=== PATIENT | female | born 1995 | race Asian ===

== ENCOUNTER 2024-04-07 10:08 | Outpatient (CLI) | payer MEDICAID, SELFPAY | END 2024-04-07 10:09 | disposition home or self-care (01) | LOC: NFLDREF 04-11 04:30 | PROVIDERS: Visit Provider Obstetrics & Gynecology | DX: Z34.92 Encounter for supervision of normal pregnancy, unspecified, second trimester (principal); Z3A.27 27 weeks gestation of pregnancy | CPT/HCPCS: 86592 ==

== ENCOUNTER 2024-06-13 13:04 | Outpatient (CLI) | payer MEDICAID, SELFPAY ==
[2024-06-14 12:54] LABS: Strep B DNA Probe POSITIVE (Negative)
[2024-06-14 13:04] LABS: Strep B Susceptibility Needed? No
== END 2024-06-13 13:05 | disposition home or self-care (01) ==
LOC: NFLDREF 13:20
PROVIDERS: Visit Provider Obstetrics & Gynecology
DX: Z34.93 Encounter for supervision of normal pregnancy, unspecified, third trimester (principal); Z3A.37 37 weeks gestation of pregnancy
CPT/HCPCS: 87081; 87653

== ENCOUNTER 2024-06-17 09:41 | Inpatient (IN) | payer MEDICAID, SELFPAY ==
[2024-06-17] VITALS (30 sets, daily range): BP systolic 103–168; BP diastolic 53–113; PULSE 76–146; RESP 16; TEMP 36.8–37; O2SAT 92–100; BMI 26.0
[2024-06-17] MEDS: AMPICILLIN 2 GM in 0.9 % SODIUM CHLORIDE Mini-bag 100 ML IVPB (09:35)
[2024-06-17 10:04] LABS: Basophils Percent Auto 0.1 % (0.0-3.0); Eosinophils Percent Auto 0.1 % (0.0-7.0); Hematocrit 39.3 % (33.0-51.0); Hemoglobin* 13.3 gm/dL (12.0-16.0); Immature Granulocytes Pct Auto 0.3 %; Lymphocytes Percent Auto 10.9 % (20-44); Mean Corpuscular HGB Conc 34 gm/dL (32-36); Mean Corpuscular Hemoglobin 30 pg (26-34); Mean Corpuscular Volume 88 fL (80-100); Monocytes Percent Auto 6.8 % (0.0-11.0); Neutrophils Percent Auto 81.8 % (42.0-72.0); Platelet Count* 327 K/uL (140-440); RDW Coefficient of Variation % 11.9 % (11.5-15.5); Red Blood Count 4.49 m/uL (4.00-5.20)
[2024-06-17 10:07] LABS: Slide Review Reflex No
[2024-06-17] MEDS: LIDOCAINE 2% (PF) 5 ML VIAL EPIDURAL (10:12)
[2024-06-17] MEDS: ROPIVACAINE 0.2% 100 ml 100 ML 12 MG EPIDURAL (10:12)
[2024-06-17] MEDS: LACTATED RINGERS 1000 ML 1,000 ML 990 ML IV (10:14)
--- NOTE | 2024-06-17 10:42 | PM.ANBPRC ---
[facility] Medical History (Updated 04/07/24 @ 10:58 by Mery Obrien MD) Mild cervical dysplasia ?N87.0 - Mild cervical dysplasia (ICD-10) Chlamydia infection ?A74.9 - Chlamydial infection, unspecified (ICD-10) Surgical History (Updated 03/21/24 @ 12:49 by Maribel Johns MD) History of surgical removal of ganglion cyst ?Z98.890 - Other specified postprocedural states (ICD-10) Family History (Updated 03/21/24 @ 12:52 by Maribel Johns MD) Maternal Grandfather Lung cancer Maternal Grandmother Uterine cancer Paternal Grandfather Lung cancer Social History (Updated 03/21/24 @ 10:37 by Katelyn Payne MA) What is your current living situation?: I presently have a place to live Problems where you live: no known problems In the past 12 months, utilities in danger of being shut off: no In past 12 months, lack of transportation kept you from medical appts, meetings, work, or getting things needed for daily living: no In the past 12 mos, have been you worried that your food would run out before you had money to buy more?: never true In the past 12 mos, the food you bought just didn't last and you didn't have money to buy more?: never true How often does anyone, including family, friends and others, physically hurt you: never How often does anyone, including family, friends and others, insult or talk down to you: rarely How often does anyone, including family, friends and others, threaten you with harm: never How often does anyone, including family, friends and others, scream or curse at you: never Health Related Social Needs: Other personal risk factors, not elsewhere classified (Z91.89) Meds Home Medications and Allergies Home Medications ?Medication ?Instructions ?Recorded ?Confirmed ?Type vits no.126-ferrous fum 1 tab PO QDAY 03/21/24 06/17/24 History 28 mg iron-folic acid 800 mcg tablet (Classic ) Allergies Allergy/AdvReac Type Severity Reaction Status Date / Time No Known Drug Allergies Allergy Verified 06/13/24 12:55 Results Labs Labs: Laboratory Results - last 24 hr 06/17/24 09:58 WBC 19.60 H RBC 4.49 Hgb 13.3 Hct 39.3 MCV 88 MCH 30 MCHC 34 RDW Coeff of Camilo 11.9 Plt Count 327 Neut % (Auto) 81.8 H Lymph % (Auto) 10.9 L King % (Auto) 6.8 Eos % (Auto) 0.1 Baso % (Auto) 0.1 Neut # (Auto) 16.00 H Lymph # (Auto) 2.10 King # (Auto) 1.30 H Eos # (Auto) 0.00 Baso # (Auto) 0.00 Abs Immat Gran (auto) 0.10 Imm/Tot Granulo (auto) 0.3 Vital Signs Vital Signs: Last Vital Signs Pulse 93 06/17/24 10:38 BP 115/63 06/17/24 10:38 Pulse Ox 99 06/17/24 10:33 Anesthesia Procedures Epidural Insertion Patient Location: OB Start Time: 10:10 Stop Time: 11:10 Start Date: 06/17/24 Stop Date: 06/17/24 Reason for Block: procedure for pain Patient Position: sitting Performed By: Milagros Yo Preanesthetic Checklist: IV checked, risks and benefits discussed, monitors and equipment checked, pre-op evaluation, timeout performed and anesthesia consent Prep: chlorhexidine gluconate Monitoring: blood pressure monitoring, continuous pulse oximetry and heart rate Approach: midline Vertebral Space: lumbar (1-5) Epidural Technique: MARYSOL saline Needle Type: Tuohy needle Injection Technique: continuous catheter Needle gauge: 17 Needle Length (cm): 10 cm Needle Insertion Depth (cm): 5 Catheter Gauge: 19 Catheter Type: multi-orifice Catheter at skin depth (cm): 15 Test Dose Result: negative and lidocaine 1.5% with epinephrine 1 to 200,000
[2024-06-17] MEDS: OXYTOCIN 30 unit/500 ML in NS 30 UNIT/500 ML BAG 300 UNIT IVPB (11:33)
[2024-06-17] MEDS: OXYTOCIN 10 UNIT/ML INJ IM (11:37)
--- NOTE | 2024-06-17 21:28 | W.PM.LDBA ---
Subjective History of Present Illness Time Seen by Provider: 12:00 Date Seen: 06/17/24 Narrative: Patient is being admitted to Labor and Delivery for spontaneous labor. She is a 28 year old at 37.6 weeks gestation. The presented in spontaneous labor at 6 cm, breathing through contractions and membrane still intact. Specific Issues/Plans G1 Partner: [] Girl: Bhavna Repeat GBS at visit after 06/06/2024 - problem with specimen CHRISTINA at 25 2/7 weeks from [place] # IUGR, diagnosed at 25 6/7 weeks (03/25/24) by MFM, EFW 4% (see summary of 03/25 US below) US every 3 weeks for growth Weekly UA dopplers / NST and surveillance. She is seeing MFM weekly for Dopplers and every three weeks for growth ultrasounds. As of 05/30, delivery acceptable at 38 weeks. # Short cervix with funneling noted at 22 weeks/FAS on 02/29/24 Cervical length:1.5cm with funneling, MFM consult was ordered in [place], patient unable to attend due to move. Vaginal progesterone recommended 03/21/24 MFM consult also placed 03/21/24; recommended no surveillance given gestational age # Anxiety, hx. PTSD Currently managed w/o medication # History of Chlamydia-2020 Negative testing at start of #History of frequent UTIs # Constipation and bleeding with bowel movements Recommended Miralax on 05/19 CHRISTINA Labs: 11/19/2023: Blood type and group B positive, antibody screen negative, hemoglobin 13.4, platelets [id number], rubella immune, RPR nonreactive, hepatitis-B surface antigen nonreactive, HIV nonreactive, gonorrhea chlamydia testing negative, urine culture negative, hepatitis-C negative. Last Pap smear completed on January 2024: Negative AFP on 02/01/2024: Negative Imagin12/04/2023: [place] to rump length average consistent with at 10 weeks 2 days, GUILLERMO: 06/29/2024. Subchorionic hemorrhage seen right lateral, no obvious adnexal masses seen. anatomy ultrasound completed on 02/29/2024: BPD: 22 weeks 3 days, 52 percentile. HC: 22 weeks 1 day, 33 percentile, AC: 22 weeks 1 day, 38.6 percentile. FL: 21 weeks 6 days, 25 percentile. EFW: 472 g, 32 percentile. Vertex presentation, anterior placenta, three-vessel umbilical cord with normal insertion. Normal amount of amniotic fluid, normal anatomy. Cervical length: 1.25 cm 03/25/24: 25 6/7 weeks breech, anterior placenta, MVP 3.7 cm, EFW 4%, AC 2%, normal dopplers, reactive NST. Normal anatomy. 04/01/24: Level 2. 26 6/7 weeks. Cephalic, anterior placenta, MVP 6.3 cm, normal umbilical artery Doppler. EFW 4% 04/07/24: PI 1.44 (elevated but no absent or reversed flow), MVP 4.3 cm 04/16/24: EFW 8%, AC 7%, MVP 4.0 cm, normal Dopplers (PI 1.24) 04/21/24: MVP 4.1 cm, PI 1.21 (normal) 04/28/2024: [facility] Health: Danielito breech, MVP 4.8 cm, PI 1.1 (normal) US 05/05/24: 31 5/7 weeks. Cephalic, SDP 6.5 cm, EFW 9%, AC 14%, normal UA doppler. 05/12/24: [facility] follow-up: Vertex, SDP: 5.6 cm, normal umbilical artery Dopplers. Normal heart rate monitoring. Continue with weekly surveillance/UA Dopplers and growth evaluation every 3 weeks. US with [facility] 05/19/24: 33 weeks, 5 days. Cephalic, MVP 6.7, normal umbilical artery Doppler. Delivery acceptable at 38 weeks. 05/30/24: [facility] follow up. cephalic, MVP 8.3, PAULO 18.2, EFW 5%, AC 7%, normal UA doppler, NST reactive Weekly testing scheduled with [facility] 06/06/24: Modified BPP wnl. UA doppler wnl. Continued surveillance with weekly NST, amniotic fluid and UA doppler assessment. Vaccinations: Covid: Declines Flu: Declines Tdap: 04/21/2024 RSV: 05/19/24 32 week mental health: [] Last pap: 11/2023: NILM OB - Problem Based A/P Additional Plan (1) IUGR (intrauterine growth restriction) affecting care of mother: Status: Acute (2) Anxiety disorder: Status: Acute (3) PTSD (post-traumatic stress disorder): Status: Acute Plan - Expectant management - Abx for GBS - Epidural per patient's request OB Exam Physical Exam Vital signs: Temp Pulse Resp BP Pulse Ox O2 Del Method 98.2 F 101 H 16 116/75 97 Room Air 06/17/24 16:56 06/17/24 16:56 06/17/24 16:56 06/17/24 16:56 06/17/24 16:56 06/17/24 16:56 Narrative: Physical exam: General: In pain from labor Psych: Alert and oriented x3, full affect HEENT: Normocephalic, atraumatic Lungs: Labored breathing Neuro: No focal deficit. Mentating appropriately Pelvic exam: 6/100/0, bulging bag per RN
--- NOTE | 2024-06-17 22:06 | W.PM.VAGDEL1 ---
Procedure Delivery date: 06/17/24 Procedure Done: Global Estimated blood loss (mL): 960 Narrative: The patient is a 28 year-old admitted on 06/17/24 at 37 and 6/7 weeks gestations. GBS +, antibiotic given. Did not get 4 hours of ampicillin due to need for delivery. Labor Analgesia: Epidural Pitocin: Only for 3rd stage management SROM: 06/17/24 at 1039, with clear fluid. Labor onset: 06/17/24 at 0730 Complete: 06/17/24 at 1113 Pushin06/17/24 at 1117 heart tones during second stage were II. Patient had deep variables during active labor course down the 60s with rapid cervical change. Variable became more frequent and closer together. Moderate variability throughout. Cervical exam at 1115 showed anterior lip and bulging bag. Decision made to AROM bulging bag to facilitate faster labor due to persistent deep variable deceleration. After AROM of bulging bag, rapid descent occurred. 5 At 1132 a viable female infant delivered in vertex OA presentation over intact via spontaneous vaginal delivery. The 's body was delivered in the usual manner without difficulty. The infant was placed on maternal abdomen. The cord was clamped and cut after a 30-60 second delay. The nose and mouth were bulb suctioned. Infant weight: pending. 8 at 1 minute and 9 at 5 minutes. Shoulder dystocia: No. Nuchal cord: 3 tight nuchal cord, 1 cord wrapped around arm. Reduced after delivery. Placenta delivered spontaneously and complete at 1136 with a 3-vessel cord. Placenta examined and noted to be complete. The cervix and vagina were inspected for lacerations, and cervical lacerations were noted 3 and 9 o'clock with brisk bleeding. Laceration(s): cervical lacerations noted at 3 and 9 o'clock, repaired with 2-0 vicryl on a running continuous manner. Cervical os remains open. Complications: Increased blood loss from Estimated blood loss: 9[address] made to [address] vaginal packing to be removed in 6 hours Sponge and needles counts are correct. Mother and infant were stable at the time of this note. [place] Infant Gender: Female total score - 1 minute: 8 total score - 5 minute: 9
[2024-06-18 01:27] VITALS: BP 110/72; PULSE 84; RESP 16; TEMP 36.8; O2SAT 98
[2024-06-18 03:48] VITALS: BP 113/74; PULSE 82; RESP 18; TEMP 36.8; O2SAT 97
[2024-06-18 06:28] LABS: Hemoglobin* 10.9 gm/dL (12.0-16.0)
[2024-06-18] MEDS: IBUPROFEN 600 MG TABLET PO ×2 (06:36→12:41)
[2024-06-18 07:54] VITALS: BP 103/64; PULSE 73; RESP 16; TEMP 36.7; O2SAT 97
[2024-06-18] MEDS: DOCUSATE SODIUM 100 MG CAPSULE PO (09:30)
--- NOTE | 2024-06-18 11:24 | PM.ANPOST ---
Post Anesthesia Note Post Anesthesia Note Patient seen: Inpatient Respiratory Status: adequate Cardiovascular Status: adequate Mental Status: baseline Pain: adequate Temp: baseline Anesthetic awareness: N/A Complications: none Follow care: none
[2024-06-18 12:13] VITALS: BP 110/75; PULSE 87; RESP 18; TEMP 36.7; O2SAT 97
--- NOTE | 2024-06-18 15:59 | PM.OBPNVD1 ---
OB - PN:Subj Subjective Date Seen: 06/18/24 Patient comments OB post-: no complaints, pain well controlled, tolerating diet and flatus present [place] status: bottle, and doing well feeding status: breast and bottle feeding Narrative: Deepa feels well.? Her pain is well controlled with current medications.? She has no new complaints.? Urinary output is adequate and she is voiding without difficulty.? Has a good appetite, is tolerating a general diet, is passing flatus, and has not had a bowel movement.?as concerns for constipation and her first bowel movement. Encouraged her to start with stool softener and add additional medications PRN. Has scant amount of rubra lochia.? She is ambulating well.?Working on baby latch which is difficult due to babies effort and suspected tongue tie. Encouraged evaluation and assistance. Had questions about if her cervical laceration could impact cervical length in future pregnancies. Reassurance given that the laceration would not have an impact on future pregnancies. OB - PN: Obj Exam Physical Exam: Vital signs: Temp Pulse Resp BP Pulse Ox O2 Del Method 98.0 F 87 18 110/75 97 Room Air 06/18/24 12:13 06/18/24 12:13 06/18/24 12:13 06/18/24 12:13 06/18/24 12:13 06/18/24 12:13 Narrative: GENERAL APPEARANCE:? normal affect, alert, no distress? MOOD:? appropriate? CHEST:? clear to auscultation and percussion? HEART:? regular rate and rhythm? ABDOMEN:? soft, non-tender the uterine fundus is U/2 and is appropriate for the stage of recovery.? PERINEUM:? mild edema of the perineum, there is a cervical laceration that is healing well.? EXTREMITIES:? normal and no edema? OB - PN: Obj Data Labs Labs: Laboratory Results - last 24 hr 06/18/24 06:15 Hgb 10.9 L OB - PN: A/P Delivery Assessment and Plan (1) Anxiety disorder: Status: Acute (2) PTSD (post-traumatic stress disorder): Status: Acute (3) Lactating mother: Status: Acute (4) care following vaginal delivery: Status: Acute Plan day: 1 Plan: routine care Comments: Anticipate discharge home tomorrow. Encouraged support.
[2024-06-18 20:35] VITALS: BP 104/70; PULSE 85; RESP 20; TEMP 36.8; O2SAT 98
[2024-06-19 03:45] VITALS: BP 128/85; PULSE 76; RESP 20; TEMP 36.6; O2SAT 98
--- NOTE | 2024-06-19 07:32 | PM.OBDSVD1 ---
DS: Providers Provider Date Seen: 06/19/24 Date of admission: 06/17/24 09:41 Primary care physician: Not a Local Provider Admitting Clinician: Elza Mcnair MD Attending Physician on discharge: Roland Downs CNM Date of Discharge: 06/19/24 DS: Diagnosis Discharge Diagnosis (1) care following vaginal delivery: Status: Acute (2) Lactating mother: Status: Acute Exam Narrative: Exam Narrative: VSS, afebrile GENERAL APPEARANCE: ?normal affect, alert, no distress MOOD: ?appropriate HEENT: normocephalic, neck supple, full ROM CHEST: ?Symmetrical chest wall movement. ?Normal respiratory effort. ?Clear to auscultation HEART: ?regular rate and rhythm ABDOMEN: ?soft, non-tender. Uterine fundus is firm, Umbilicus, Midline and is appropriate for the stage of recovery. ?Bowel sounds present. PERINEUM: ?mild edema of the perineum EXTREMITIES: ?normal and no edema Const: Vital Signs, click to edit/add: Vital Signs - 24 hr 06/18/24 07:54 06/18/24 12:13 06/18/24 20:35 Temperature 98.0 F 98.0 F 98.2 F Pulse Rate [Pulse Oximeter] 73 87 85 Respiratory Rate 16 18 20 Blood Pressure [Le ft Arm] 103/64 110/75 104/70 Pulse Oximetry 97 97 98 Oxygen Delivery Me thod Room Air Room Air Room Air 06/19/24 03:45 Temperature 98 F Pulse Rate [Pulse Oximeter] 76 Respiratory Rate 20 Blood Pressure [Le ft Arm] 128/85 Pulse Oximetry 98 Oxygen Delivery Me thod Room Air Documenting provider has reviewed patient's vital signs: yes OB - DS: Summary Hospital Course Hospital Course: Deepa is a 28 y.o. who was admitted to [facility] & D for labor. ?She had an uncomplicated NVD.?The patient feels well. ?The pain is well controlled with current medications. ?She has no new complaints. ?She is breast feeding and reports things are going ok she has been working with .? the patient has done well.? Vitals have been stable.? She has remained afebrile.? Has a good appetite, is tolerating a general diet. ?She is voiding without difficulty.? She is passing gas and has had a bowel movement.? She is ambulating and denies any dizziness.? Has Small amount of rubra lochia. ?She is undecided on what she is planning for prevention. Peripartum Data delivery method: Vaginal Laceration description: Cervical - 2nd Degree complications: none Gender: Female Infant Discharge Plan: Home Status at Discharge Functional status at discharge: independent ambulation Overall status at discharge: patient is progressing back to baseline Time Spent with Patient Time attestation: Total time spent providing and/or coordinating discharge services: Time spent: Less than 30 minutes Discharge Plan Discharge Disposition: Home, Self-Care Date of Admission: 06/17/24 09:41 Attending Provider on Discharge: Roland Downs Primary Care Provider: Provider,Not a Local Condition: Stable Anticipated Discharge Date/Time: 06/19/24 12:00 Discharge Medications: New acetaminophen 500 mg Tablet 1,000 mg PO Q6H PRNQty: 0 0RF docusate sodium 100 mg Capsule 100 mg PO DAILY Qty: 90 1RF ibuprofen 600 mg Tablet 600 mg PO Q6H PRNQty: 60 0RF Continued Classic 28 mg iron- 800 mcg tablet 1 tab PO QDAY Discharge Orders: Discharge Order (Routine); Ordered 06/19/24 Ordered By: Roland Downs Patient Education: OB Over the Counter Medication Information, OB Vaginal/Breast Feeding Additional Instructions: Discharge instructions were reviewed with the patient including signs and symptoms of infection and home going medications Nothing vaginally for 6 weeks: no tampons or intercourse Off Work or School for 6 weeks 2-week visit: discuss infant feeding concerns, review control options and screen for anxiety/depression. 6-week visit for an annual exam. consultation services are available to all mothers and babies for the first year after delivery.? To make an appointment, please call [phone]. Activity Level: Activity as Tolerated Discharge Diet: Regular Follow Up Appointments: [facility] [Provider Group] Forms: [place] Info Instructions
[2024-06-19 09:00] VITALS: BP 122/79; PULSE 85; RESP 16; TEMP 36.8; O2SAT 97
[2024-06-19] MEDS: IBUPROFEN 600 MG TABLET PO (09:13)
[2024-06-19] MEDS: DOCUSATE SODIUM 100 MG CAPSULE PO (09:13)
== END 2024-06-19 13:15 | disposition home or self-care (01) | DRG 768 ==
LOC: OB OUT 09:43 → OB 09:43
PROVIDERS: Admitting Provider Obstetrics & Gynecology; Visit Provider Obstetrics & Gynecology
DX: O71.3 Obstetric laceration of cervix (principal); Z37.0 Single live birth; O26.873 Cervical shortening, third trimester; O99.344 Other mental disorders complicating childbirth; F41.9 Anxiety disorder, unspecified; Z3A.37 37 weeks gestation of pregnancy; F43.10 Post-traumatic stress disorder, unspecified; O99.824 Streptococcus B carrier state complicating childbirth; O76 Abnormality in fetal heart rate and rhythm complicating labor and delivery
CPT/HCPCS: 01967; 36415; 85018; 85025; 86592; 88307; A9270; J0290; J2371; J2590; J2795; J7120

== ENCOUNTER 2024-08-28 11:56 | Outpatient (CLI) | payer MEDICAID, SELFPAY | END 2024-08-28 11:57 | disposition home or self-care (01) | LOC: NFLDREF 09-01 20:42 | PROVIDERS: Visit Provider Physician Assistant | DX: Z39.2 Encounter for routine postpartum follow-up (principal) | CPT/HCPCS: 86787 ==